=== PATIENT | female | born 1990 | race American Indian/Alaskan Native ===

== ENCOUNTER 2019-01-31 09:59 | Emergency (ER) | payer OTHER ==
--- NOTE | 2019-01-31 10:26 | ED PDOC ---
Arrival/HPI - General Time Seen by Provider: 01/31/19 10:08 Historian: Patient - History of Present Illness Narrative History of Present Illness (Text): 01/31/19 11:40 28 y/o female with no significant PMH presents to the ED c/o upper lip swelling and pain x 1 day. Associated tingling and throbbing with developing blister to the right upper lip. Pt has never experienced this before. No changes in diet. Denies fever, chills, rash, throat/tongue swelling, SOB, headache, vision changes, nausea, vomiting, or any other associated symptoms. Past Medical History - Provider Review Nursing Documentation Reviewed: Yes Family/Social History - Physician Review Nursing Documentation Reviewed: Yes Family/Social History: No Known Family HX Allergies/Home Meds Allergies/Adverse Reactions: Allergies ibuprofen Allergy (Verified 01/31/19 10:13) SWELLING shrimp Allergy (Verified 01/31/19 10:13) SWELLING Review of Systems - Review of Systems Constitutional: Normal. absent: Fevers Eyes: Normal. absent: Vision Changes, Photophobia ENT: Other (lip swelling and pain). absent: Sore Throat, Sinus Congestion Respiratory: Normal. absent: SOB, Cough Cardiovascular: Normal. absent: Chest Pain, Palpitations Gastrointestinal: Normal. absent: Abdominal Pain, Nausea, Vomiting Skin: Normal. absent: Rash, Skin Lesions Neurological: Normal. absent: Headache, Dizziness Physical Exam Vital Signs Reviewed: Yes Temperature: Afebrile Blood Pressure: Normal Pulse: Bradycardic Respiratory Rate: Normal Appearance: Positive for: Well-Appearing, Non-Toxic, Comfortable Pain Distress: None Mental Status: Positive for: Alert and Oriented X 3 - Systems Exam Head: Present: Atraumatic, Normocephalic Pupils: Present: PERRL Extroacular Muscles: Present: EOMI Conjunctiva: Present: Normal Ears: Present: Normal, NORMAL TM, Normal Canal Mouth: Present: Moist Mucous Membranes. No: Drooling, Normal Lips (swelling to right upper lip with tenderness and developing blister ) Pharnyx: Present: Normal. No: ERYTHEMA, EXUDATE, TONSILS ENLARGED, Soft Palate/Uvular Edema Nose (External): Present: Atraumatic Nose (Internal): Present: Normal Inspection Neck: Present: Normal Range of Motion Respiratory/Chest: Present: Clear to Auscultation, Good Air Exchange. No: Respiratory Distress, Accessory Muscle Use Cardiovascular: Present: Regular Rate and Rhythm, Normal S1, S2 Upper Extremity: Present: Normal Inspection, Normal ROM, NORMAL PULSES, Neurovascularly Intact, Capillary Refill < 2s. No: Cyanosis, Edema, Temperature Abnormalties Lower Extremity: Present: Normal ROM Neurological: Present: GCS=15, CN II-XII Intact, Speech Normal, Motor Func Grossly Intact, Normal Sensory Function, Gait Normal Skin: Present: Warm, Dry, Normal Color. No: Rashes Lymphatic: No: Cervical Adenopathy Psychiatric: Present: Alert, Oriented x 3, Normal Insight, Normal Concentration, Normal Affect, Normal Mood Medical Decision Making ED Course and Treatment: 01/31/19 11:45 Initial Plan: * Prednisone * Valtrex Pt with isolated lip swelling, no urticaria, SOB, wheezing, tongue or throat swelling. No recent changes in diet. Pt examined at bedside by ED attending Dr. Baxter, who recommends valtrex and steroids. Advised PMD followup. First dose of medication given here. Diagnostic testing results and plan of care discussed with patient. Strict instructions given regarding prescription use, importance of followup, and signs/symptoms to return to ER including or any other new/worsening symptoms. Pt verbalized understanding of discussion. Patient is A&Ox3, ambulating with steady gait, with vital signs stable for discharge. Disposition/Present on Arrival - Present on Arrival Any Indicators Present on Arrival: No History of DVT/PE: No History of Uncontrolled Diabetes: No Urinary Catheter: No History of Decub. Ulcer: No - Disposition Have Diagnosis and Disposition been Completed?: No Diagnosis: Herpes labialis Disposition: HOME/ ROUTINE Disposition Time: 10:35 Patient Plan: Discharge Patient Problems: Current Active Problems Problem Status Onset Herpes labialis Acute Condition: STABLE Discharge Instructions (ExitCare): Cold Sores (Oral Herpes) Additional Instructions: Steroids daily for 4 more days One more dose valtrex, 12 hours from now Apply ice to swollen area, no direct skin contact Followup with primary doctor within 2 days Return to ER with any new/worsening symptoms Prescriptions: Prednisone [Deltasone] 20 mg PO DAILY #4 tablet Valacyclovir HCl [Valtrex] 2 gm PO ONCE #2 tablet Referrals: Bhakti Mckeon MD [Medical Doctor] - Follow up with primary Forms: [employer] (Persian), WORK NOTE
[2019-01-31 10:27] VITALS: BP 111/77; PULSE 56; RESP 18; TEMP 98; O2SAT 98
== END 2019-01-31 12:00 | disposition home or self-care (01) ==
LOC: ED 09:59 → MERGE 09:59 → ED 12:00
DX: B00.1 Herpesviral vesicular dermatitis (principal)